=== PATIENT | born 2000 ===

== ENCOUNTER → 2019-06-09 | Outpatient (CLI) | payer SELFPAY ==
[2019-06-09 18:33] LABS: INFLUENZA TYPE A NEGATIVE FOR TYPE A (NEGATIVE)
[2019-06-09 18:34] LABS: INFLUENZA TYPE B NEGATIVE FOR TYPE B (NEGATIVE)
== END | disposition home or self-care (01) ==
LOC: PUC 17:48
PROVIDERS: ATTEND Nurse Practitioner
DX: Z11.2 Encounter for screening for other bacterial diseases (principal)
CPT/HCPCS: 87804